=== PATIENT | female | born 1985 | race Two or more races ===

== ENCOUNTER 2019-02-02 11:55 | Emergency (ER) | payer OTHER ==
[~2019-02-02] VITALS: Ht 160 cm; Wt 94.6 kg
[2019-02-02 12:07] VITALS: BP 143/99; Ht 160 cm; Wt 94.6 kg
== END 2019-02-02 12:51 | disposition home or self-care (01) ==
LOC: ED 11:55
DX: G44.209 Tension-type headache, unspecified, not intractable (principal); G24.5 Blepharospasm; R07.89 Other chest pain; M25.511 Pain in right shoulder